=== PATIENT | female | born 1990 | race Hispanic/Latino ===

== ENCOUNTER 2021-10-11 22:25 | Emergency (ER) | payer SELFPAY ==
[2021-10-11 22:41] VITALS: BP 131/81
[2021-10-12] MEDS ORDERED: SODIUM CHLORIDE 0.9% 1000 ML 1,000 ML IV ONE (00:33)
[2021-10-12 01:00] LABS: Basophils % (Auto) 0.4 % (0.0-1.8); Eosinophils # (Auto) 0.1 K/mm3 (0.0-0.4); Eosinophils % (Auto) 1.2 % (0.0-4.3); Hematocrit 33.5 % (30.3-42.9); Hemoglobin 11.4 gm/dl (10.1-14.3); Lymphocytes # (Auto) 0.9 K/mm3 (1.2-5.4); Lymphocytes % (Auto) 12.6 % (13.4-35.0); Mean Corpuscular HGB Conc 34 % (30-34); Mean Corpuscular Volume 104 fl (79-97); Monocytes # (Auto) 0.9 K/mm3 (0.0-0.8); Monocytes % (Auto) 11.8 % (0.0-7.3); Platelet Count 227 K/mm3 (140-440); Red Blood Count 3.23 M/mm3 (3.65-5.03); Red Cell Distribution Width 16.5 % (13.2-15.2)
[2021-10-12] MEDS ORDERED: LORazepam 2 MG/ML VIAL IV ONE (01:05)
[2021-10-12 01:45] LABS: Alanine Aminotransferase 97 units/L (7-56); Albumin 4.7 g/dL (3.9-5); Blood Urea Nitrogen 13 mg/dL (7-17); Calcium 9.6 mg/dL (8.4-10.2); Hemolysis Index 8
[2021-10-12 01:49] LABS: BUN/Creatinine Ratio 33
--- NOTE | 2021-10-12 01:49 | XRay Report ---
CHEST 1 VIEW 10/12/2021 12:36 AM INDICATION / CLINICAL INFORMATION: Alcohol Intoxication. COMPARISON: None available. FINDINGS: SUPPORT DEVICES: None. HEART / MEDIASTINUM: No significant abnormality. LUNGS / PLEURA: No significant pulmonary or pleural abnormality. No pneumothorax. ADDITIONAL FINDINGS: No significant additional findings. IMPRESSION: 1. No acute findings. Signer Name: Clinton Lerner DO Signed: 10/12/2021 1:44 AM Workstation Name: [id number]
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
== END 2021-10-12 05:46 | disposition home or self-care (01) ==
LOC: ED 22:25
DX: F10.10 Alcohol abuse, uncomplicated (principal); F17.200 Nicotine dependence, unspecified, uncomplicated; Z79.899 Other long term (current) drug therapy; Y90.9 Presence of alcohol in blood, level not specified
CPT/HCPCS: 36415; 71045; 80053; 82010; 83690; 83735; 85025; 96361; 96374; 99284; J2060; J7030; 80320; G0480